=== PATIENT | female | born 1990 | race Hispanic/Latino ===

== ENCOUNTER 2019-11-30 | Emergency (ER) | payer MEDICAID ==
[2019-11-30] MEDS ORDERED: ULTRAM50 M1 PO (20:44)
[2019-11-30] MEDS ORDERED: CLINDAMYCIN300 M1 PO (20:44)
== END 2019-11-30 20:55 | disposition home or self-care (01) | DRG 159 ==
DX: S02.5XXA Fracture of tooth (traumatic), initial encounter for closed fracture (principal); X58.XXXA Exposure to other specified factors, initial encounter